=== PATIENT | female | born 1990 | race Caucasian/White ===

== ENCOUNTER 2017-01-14 20:46 | Emergency (ER) | payer OTHER ==
[2017-01-14] MEDS ORDERED: Ketorolac INJ* 30 MG/ML 1 ML VIAL IV ONE (21:33)
[2017-01-14] MEDS ORDERED: diPHENhydraMINE IV* 50 MG/ML 1 ml VIAL (BENADRYL) IV ONE (21:33)
[2017-01-14] MEDS ORDERED: NS 0.9% 1000 ML* 1,000 ML IV ONE (21:33)
[2017-01-14] MEDS ORDERED: Metoclopramide IV* 5 MG/ML 2 ML VIAL IV ONE (21:33)
--- NOTE | 2017-01-14 22:33 | ED ---
Felix Mcgrath Alfonso, scribed for Guicho Perera MD on 01/14/17 at 2129 . Headache - HPI Summary HPI Summary: This patient is a 26 year old female presenting to [facility] c/o a throbbing frontal headache since 1000 today. Symptoms aggravated by light and alleviated by nothing. She reports palpitations, nausea, lightheadedness, photophobia, and dizziness. Today she took 800 mg ibuprofen at 1300 and Sumatriptan and 1830 today, neither of which relieved her symptoms. PMHx of migraines. - History Of Current Complaint Chief Complaint: EDHeadache Stated Complaint: LIGHTHEADED,FAST HEART RATE-POSS MEDICATION REACT Time Seen by Provider: 01/14/17 21:03 Hx Obtained From: Patient Onset/Duration: Sudden Onset, Started hours ago - 1000 this morning, Still Present Timing: Constant Character: Throbbing Aggravating Factor: Bright Lights Allevating Factors: Nothing Associated Signs And Symptoms: Dizziness, Nausea, Other (Noted In Comments) - Positive palpations, photophobia, and lightheadedness - Allergies/Home Medications Allergies/Adverse Reactions: Allergies Allergy/AdvReac Type Severity Reaction Status Date / Time Erythromycin Allergy Severe hives, Verified 04/23/15 12:30 fever, aches PMH/Surg Hx/FS Hx/Imm Hx Endocrine/Hematology History: Denies: Hx Diabetes Cardiovascular History: Reports: Hx Hypertension - currently out of medication Respiratory History: Denies: Hx Asthma - Surgical History Surgery Procedure, Year, and Place: eye surgery. tubes in ears Infectious Disease History: No Infectious Disease History: Denies: Traveled Outside the [place] in Last 30 Days - Family History Known Family History: Positive: Diabetes - Social History Alcohol Use: Rare Substance Use Type: Reports: None Smoking Status (MU): Never Smoked Tobacco Review of Systems Positive: Palpitations Positive: Nausea Neurological: Other - Positive light headedness, photophobia, and dizziness. Positive: Headache - throbbing frontal headache since 1000 today All Other Systems Reviewed And Are Negative: Yes Physical Exam Triage Information Reviewed: Yes Vital Signs On Initial Exam: Initial Vitals Temp Pulse Resp BP Pulse Ox 97.5 F 66 20 185/106 100 01/14/17 20:46 01/14/17 20:46 01/14/17 20:46 01/14/17 20:46 06/16/17 20:46 Vital Signs Reviewed: Yes Appearance: Positive: Well-Appearing, No Pain Distress, Obese Skin: Positive: Warm, Skin Color Reflects Adequate Perfusion, Dry Head/Face: Positive: Normal Head/Face Inspection Eyes: Positive: Normal ENT: Positive: Normal ENT inspection Neck: Positive: Supple, Nontender Respiratory/Lung Sounds: Positive: Clear to Auscultation, Breath Sounds Present Cardiovascular: Positive: RRR Abdomen Description: Positive: Nontender, Soft Bowel Sounds: Positive: Present Musculoskeletal: Positive: Normal Neurological: Positive: Normal, Sensory/Motor Intact, Alert, Oriented to Person Place, Time, CN Intact II-III, Other - No meningeal signs Psychiatric: Positive: Normal - [place] Coma Scale Coma Scale Total: 15 Diagnostics - Vital Signs Vital Signs Temp Pulse Resp BP Pulse Ox 01/14/17 21:14 97.5 F 68 16 155/89 99 01/14/17 20:46 97.5 F 66 20 185/106 100 - Laboratory Lab Statement: Any lab studies that have been ordered have been reviewed, and results considered in the medical decision making process. - EKG 2052 Cardiac Rate: NL EKG Rhythm: Sinus Rhythm Re-Evaluation - Re-Evaluation First Eval Re-Evaluation Time: 22:19 Change: Improved Comment: Patient's symptoms are improved. Headache Course/Dx - Course Course Of Treatment: Ms. Dover improved significantly with the usual migraine cocktail of ketorolac, benadryl, reglan and IV fluids. She described her MEHTA as a typical migraine that just wouldn't go away. - Diagnoses Provider Diagnoses: Migraine Discharge - Discharge Plan Condition: Critical Disposition: HOME Patient Education Materials: Migraine Headache (ED) Referrals: Scout Benites MD [Primary Care Provider] - 3 Days The documentation as recorded by the Felix man Alfonso accurately reflects the service I personally performed and the decisions made by me, Guicho Perera MD.
[2017-01-14 23:53] VITALS: BP 148/82
== END 2017-01-14 23:52 | disposition home or self-care (01) ==
LOC: ED 20:46
DX: G43.909 Migraine, unspecified, not intractable, without status migrainosus (principal); R00.2 Palpitations; I10 Essential (primary) hypertension; E66.9 Obesity, unspecified
CPT/HCPCS: 93005; 96361; 96374; 96375; 99283; J1200; J1885

== ENCOUNTER 2017-12-14 22:33 | Emergency (ER) | payer OTHER ==
[2017-12-14] MEDS ORDERED: Ketorolac INJ* 30 MG/ML 1 ML VIAL IV PUSH ONE (23:01)
[2017-12-14 23:05] LABS: ABS Basophils 0.1 10^3/ul (0-0.2); ABS Eosinophils 0.2 10^3/ul (0-0.6); ABS Lymphocytes 3.3 10^3/ul (1.0-4.8); ABS Neutrophils 7.5 10^3/ul (1.5-7.7); ABS Nucleated RBC 0 10^3/ul; Eosinophil % 1.7 % (0-6); Hematocrit 42 % (35-47); Mean Corpuscular HGB Conc 33 g/dl (31-36); Mean Corpuscular Hemoglobin 30 pg (27-31); Mean Corpuscular Volume 91 fL (80-97); Mean Platelet Volume 8.2 um3 (7.4-10.4); Nucleated Red Blood Cells % 0; Platelet Count 308 10^3/ul (150-450); Red Blood Count 4.64 10^6/ul (4.0-5.4); Red Cell Distribution Width 13 % (10.5-15); White Blood Count 12.1 10^3/ul (3.5-10.8)
[2017-12-14 23:28] LABS: EGFR Non-African American 68.7 (>60)
[2017-12-15] MEDS ORDERED: Iohexol 300* (CONTRAST) 10 ML SDV IV ONE (01:17)
--- NOTE | 2017-12-15 02:52 | ED ---
Silke Mcgrath Nilda, scribed for Alexandre Holbrook MD on 12/14/17 at 2305 . Abdominal Pain/Female - HPI Summary HPI Summary: This patient is a 27 year old F presenting to [facility] with a chief complaint of intermittent suprapubic cramping and pinching since this morning at 1000. The patient rates the pain 7/10 in severity. Symptoms aggravated by movement and alleviated by nothing. Patient denies fever, vaginal discharge, dysuria, and urinary frequency. Pt states she has Mirena IUD. LNMP is spotting irregularly. Pt states Azithromycin allergy. - History of Current Complaint Chief Complaint: EDAbdPain Stated Complaint: ABD PAIN/BLOATING Time Seen by Provider: 12/14/17 22:54 Hx Obtained From: Patient Hx Last Menstrual Period: IUD Onset/Duration: Sudden Onset, Lasting Hours, Still Present Timing: Intermittent Episode Lasting Severity Currently: Severe Pain Intensity: 7 Pain Scale Used: 0-10 Numeric Location: Suprapubic Radiates: No Character: Cramping, Other: - pinching Aggravating Factor(s): Movement Alleviating Factor(s): Nothing Associated Signs and Symptoms: Positive: Other: - denies fever, discharge, dysuria, and urinary frequency. Allergies/Adverse Reactions: Allergies Allergy/AdvReac Type Severity Reaction Status Date / Time erythromycin base Allergy Hives Verified 12/14/17 22:40 PMH/Surg Hx/FS Hx/Imm Hx Endocrine/Hematology History: Denies: Hx Diabetes Cardiovascular History: Reports: Hx Hypertension - currently out of medication Respiratory History: Denies: Hx Asthma - Surgical History Surgery Procedure, Year, and Place: eye surgery. tubes in ears Infectious Disease History: No Infectious Disease History: Denies: Traveled Outside the [place] in Last 30 Days - Family History Known Family History: Positive: Diabetes - Social History Alcohol Use: Rare Substance Use Type: Reports: None Smoking Status (MU): Never Smoked Tobacco Review of Systems Negative: Fever Positive: Abdominal Pain Negative: dysuria, discharge, frequency All Other Systems Reviewed And Are Negative: Yes Physical Exam - Summary Physical Exam Summary: Appearance: Well appearing, no pain distress Skin: warm, dry, reflects adequate perfusion Head/face: normal Eyes: EOMI, JOVANNI ENT: normal Neck: supple, non-tender Respiratory: CTA, breath sounds present Cardiovascular: RRR, pulses symmetrical Abdomen: soft, scar. RLQ pain at [place] point. Right pelvic discomfort. Bowel Sounds: present Musculoskeletal: normal, strength/ROM intact Neuro: normal, sensory motor intact, A&Ox3 Triage Information Reviewed: Yes Vital Signs On Initial Exam: Initial Vitals Temp Pulse Resp BP Pulse Ox 97.7 F 77 16 152/92 98 12/14/17 22:38 12/14/17 22:38 12/14/17 22:38 12/14/17 22:38 12/14/17 22:38 Vital Signs Reviewed: Yes Diagnostics - Vital Signs Vital Signs Temp Pulse Resp BP Pulse Ox 12/14/17 22:38 97.7 F 77 16 152/92 98 - Laboratory Lab Results: Lab Results 12/14/17 12/14/17 12/14/17 Range/Units 22:55 22:55 22:55 WBC 12.1 H (3.5-10.8) 10^3/ul RBC 4.64 (4.0-5.4) 10^6/ul Hgb 14.0 (12.0-16.0) g/dl Hct 42 (35-47) % MCV 91 (80-97) fL MCH 30 (27-31) pg MCHC 33 (31-36) g/dl RDW 13 (10.5-15) % Plt Count 308 (150-450) 10^3/ul MPV 8.2 (7.4-10.4) um3 Neut % (Auto) 62.3 (38-83) % Lymph % (Auto) 27.0 (25-47) % Cameron % (Auto) 7.9 H (0-7) % Eos % (Auto) 1.7 (0-6) % Baso % (Auto) 1.1 (0-2) % Absolute Neuts (auto) 7.5 (1.5-7.7) 10^3/ul Absolute Lymphs (auto) 3.3 (1.0-4.8) 10^3/ul Absolute Monos (auto) 1.0 H (0-0.8) 10^3/ul Absolute Eos (auto) 0.2 (0-0.6) 10^3/ul Absolute Basos (auto) 0.1 (0-0.2) 10^3/ul Absolute Nucleated RBC 0 10^3/ul Nucleated RBC % 0 Sodium 139 (139-145) mmol/L Potassium 4.1 (3.5-5.0) mmol/L Chloride 102 (101-111) mmol/L Carbon Dioxide 30 (22-32) mmol/L Anion Gap 7 (2-11) mmol/L BUN 14 (6-24) mg/dL Creatinine 0.96 H (0.51-0.95) mg/dL Est GFR ( Amer) 88.4 (>60) Est GFR (Non-Af Amer) 68.7 (>60) BUN/Creatinine Ratio 14.6 (8-20) Glucose 104 H (70-100) mg/dL Lactic Acid 1.9 (0.5-2.0) mmol/L Calcium 9.0 (8.6-10.3) mg/dL Total Bilirubin 0.20 (0.2-1.0) mg/dL AST 15 (13-39) U/L ALT 19 (7-52) U/L Alkaline Phosphatase 43 (34-104) U/L C-Reactive Protein < 1.00 (< 5.00) mg/L Total Protein 6.6 (6.4-8.9) g/dL Albumin 4.1 (3.2-5.2) g/dL Globulin 2.5 (2-4) g/dL Albumin/Globulin Ratio 1.6 (1-3) Lipase 26 (11.0-82.0) U/L Beta HCG, Quant < 0.60 mIU/mL Result Diagrams: 12/14/17 22:55 12/14/17 22:55 Lab Statement: Any lab studies that have been ordered have been reviewed, and results considered in the medical decision making process. - CT Abd/Pel CT Interpretation Completed By: Radiologist - 3.7 cm left ovarian cyst and small complex physiologic free fluid cul-de-sac, consistent with recent ultrasound findings. IUD in uterus. Normal appendix. No bowel obstruction, colitis, diverticulitis or free air. Unremarkable pancreas, kidneys and gallbladder. Dr. Holbrook has reviewed this report. - Additional Comments Diagnostic Additional Comments: US Abd, per radiologist, reveals appendix not seen in right lower quadrant. No visible mass or fluid collection. If there is continued clinical concern for acute appendicitis, advise CT. Dr. Holbrook has reviewed this report. US Pelvic, per radiologist, reveals no ovarian torsion. Bilateral arterial waveforms. 3.5 cm left ovarian cyst. 1.8 cm and 1.7 cm follicles in right ovary. Small physiologic free fluid posterior cul-de-sac. IUD in satisfactory position in uterus. Endometrial stripe complex 5 mm thick. Unremarkable visualized portion of bladder. Dr. Holbrook has reviewed this report. Re-Evaluation - Re-Evaluation First Eval Re-Evaluation Time: 01:01 Comment: Mild suprapubic pain and still RLQ pain. Will CT pt. Second Eval Re-Evaluation Time: 02:43 Comment: Pt feels better. Agreeable to D/C. Abdominal Pain Fem Course/Dx - Course Course Of Treatment: Pt with suprapubic and RLQ pain. US c/w ovarian cyst -- pt still having a lot of RLQ pain. US didnt show appendix. CT performed. NEG appendix. Cyst confirmed. Toradol relieved pain. D/C home in good condition. 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 - Diagnoses Differential Diagnosis: Positive: Appendicitis, Ectopic , Ovarian Cyst , Pancreatitis, , Urinary Tract Infection Provider Diagnoses: Ovarian cyst Discharge - Sign-Out/Discharge Documenting (check all that apply): Discharge/Admit/Transfer - Discharge Plan Condition: Improved Disposition: HOME Prescriptions: Naproxen [Naproxen 500 mg tab] 500 mg PO BID PRN #10 tablet.dr VALENCIA Reason: Pain Patient Education Materials: Ovarian Cyst (ED) Forms: *Work Release Referrals: Scout Benites MD [Primary Care Provider] - Additional Instructions: Call your OBGYN in the morning for follow up. Return with fever, uncontrolled pain, worse or other concerns. - Billing Disposition and Condition Condition: IMPROVED Disposition: HOME The documentation as recorded by the Silke man Nilda accurately reflects the service I personally performed and the decisions made by , Alexandre Holbrook MD.
[2017-12-15 04:17] VITALS: BP 142/98
--- NOTE | 2017-12-15 07:51 | RAD ---
INDICATION: Right lower quadrant pain. COMPARISON: None TECHNIQUE: Real time ultrasound images of the right lower quadrant were acquired in marmolejo scale and Doppler color flow. FINDINGS: The appendix is not discreetly visualized. Normal loops of bowel are seen. There is no acute inflammatory change, measurable lymphadenopathy or drainable fluid collection. IMPRESSION: Nonvisualization of the appendix.
--- NOTE | 2017-12-15 07:54 | RAD ---
INDICATION: Bilateral pelvic pain COMPARISON: None. TECHNIQUE: Real-time transabdominal only ultrasound examination of the female pelvis including grayscale and Doppler color flow imaging. FINDINGS: Uterus: The uterus is normal in size and echogenicity measuring 8.9 x 4.8 x 5.9 cm. The endometrial stripe is smooth and uniform measuring 5 mm in thickness. The patient's intrauterine device appears to be appropriately positioned at the fundal height uterus. Ovaries: The right and left ovary measure 3.8 x 2.9 x 3.6 cm and 5.7 x 2.9 x 4.9 cm, respectively. Normal arterial and venous waveforms are identified. The left ovary there is an anechoic and avascular irregularly bordered structure most consistent with an involuting cyst measuring 2.5 cm in greatest dimension. In the right ovary smaller anechoic and avascular structures are consistent with follicles measuring 1.8 and 1.7 cm in greatest dimension. There is no free fluid in the cul-de-sac. IMPRESSION: 1. Normal and age-appropriate pelvic ultrasound with an appropriately positioned intrauterine device according to sonographic criteria. 2. Involuting dominant follicle in the left ovary.
--- NOTE | 2017-12-15 08:11 | RAD ---
INDICATION: Right lower quadrant pain COMPARISON: Pelvic sonogram same date; ultrasound of the appendix same day TECHNIQUE: Axial source images were obtained from the hemidiaphragms to the symphysis pubis following administration 100 mL Omnipaque 300. Oral contrast was not given per ED request. Coronal and sagittal reconstructed images were acquired. Lung bases: The lung bases are clear. Liver: The liver is normal in size. There are no masses. There is no ductal dilatation. Gallbladder: There are no calcified gallstones. There is no evidence of wall thickening or pericholecystic fluid. Spleen: The spleen is normal in size. There are no masses. Pancreas: There is no focal pancreatic mass or ductal dilatation. Adrenal glands: There is no evidence of adrenal mass. Kidneys: The kidneys are normal in size and position. There are prompt nephrograms and there is prompt excretion bilaterally. There are no renal parenchymal masses. There is no evidence of nephrolithiasis. Adenopathy: There is no evidence of adenopathy by size criteria. Fluid collections: There is a small amount of free fluid in the cul-de-sac. Vessels:There are no significant atherosclerotic changes involving the aorta. There is no focal aneurysm. The iliac vessels are normal in caliber. The IVC appears normal. GI tract: There is some limitations in evaluating the bowel due to lack of oral contrast. No specific abnormalities of the upper lower GI tract are seen. The appendix is visualized and appears normal. Pelvic organs: The uterus and right adnexa are normal. There is an IUD. There is a 3.5 cm left adnexal cyst. There are additional small follicles. Bladder: There are no bladder masses. Abdominal and pelvic soft tissues: There is mild diastases of the rectus abdominis musculature. Osseous structures: There are no acute osseous findings. Other: None IMPRESSION: 2.5 CM LEFT ADNEXAL CYST WITH SMALL AMOUNT OF FREE FLUID. NORMAL APPENDIX
== END 2017-12-15 04:17 | disposition home or self-care (01) ==
LOC: ED 22:33
DX: N83.02 Follicular cyst of left ovary (principal); Z88.3 Allergy status to other anti-infective agents
CPT/HCPCS: 36415; 74177; 76705; 76856; 80053; 83605; 83690; 84702; 85025; 86140; 87491; 87591; 96374; 99283; J1885; Q9967